=== PATIENT | male | born 1955 | race African-American/Black ===

== ENCOUNTER 2016-08-14 08:31 | Day surgery (SDC) | payer MEDICAID ==
[2016-08-13 13:42] VITALS: BMI 32.9
[2016-08-14] VITALS (8 sets, daily range): BP systolic 116–136; BP diastolic 58–74; PULSE 80–89; RESP 16–26; Ht 182.9 cm; Wt 116.6 kg
[~2016-08-14] VITALS: Ht 182.9 cm; Wt 116.6 kg
[~2016-08-14 08:31] MED LIST: CEFAZOLIN 1 GM/50 ML (PMX) 50 ML IVPB ONE; SOD CHLORIDE 0.9% 1,000 ML IV* SCH
--- NOTE | 2016-08-14 09:56 | RADRPT ---
PROCEDURE: XR Chest AP portable CLINICAL INDICATION: Scalp mass TECHNIQUE: An AP portable radiograph of the chest was submitted. COMPARISON: None. FINDINGS: Support Hardware: None Cardiovascular: The cardiovascular silhouette appears unremarkable. Lung Knutson: The lung knutson appear clear with no nodule, alveolar infiltrate, for a interstitial pr ominence evident. Pleural Spaces: No pneumothorax or pleural effusion is identified. Osseous Structures: There is a mild apparent dextroscoliotic curve to the thoracic spine. Soft Tissues: The soft tissues appear unremarkable. IMPRESSION: 1. Mild apparent dextroscoliotic curve to the thoracic spine. 2. Otherwise, unremarkable portable chest. Physician Yunier Date Time Electronically viewed and signed by Physician Yunier on 08/14/2016 09:56 /
[2016-08-14] MEDS ORDERED: CEFAZOLIN 2 GM/50 ML (PMX) 50 ML IVPB ONE (10:00)
[2016-08-14] MEDS ORDERED: SOD CHLORIDE 0.9% 1,000 ML IV SCH (10:00)
[2016-08-14 10:14] LABS: BASOPHILS % 0.4 % (0.0-2.0); EOSINOPHILS # 0.2 10^3/ul (0.0-0.5); EOSINOPHILS % 1.8 % (0.0-7.0); HEMATOCRIT 44.2 % (42.0-52.0); LYMPHOCYTES # 3.2 10^3/ul (0.8-2.9); LYMPHOCYTES % 37.2 % (15.0-51.0); MEAN CORPUSCULAR HEMOGLOBIN 28.3 pg (29.0-33.0); MEAN CORPUSCULAR HGB CONC 33.9 g/dl (32.0-37.0); MEAN CORPUSCULAR VOLUME 83.7 fl (82.0-101.0); MEAN PLATELET VOLUME 8.9 fl (7.4-10.4); MONOCYTE # 0.9 10^3/ul (0.3-0.9); NEUTROPHIL # 4.4 10^3/ul (1.6-7.5); NEUTROPHILS % 50.6 % (39.0-77.0); PLATELET COUNT 269 10^3/UL (140-440); RED BLOOD COUNT 5.28 10^6/ul (4.70-6.10); RED CELL DISTRIBUTION WIDTH 13.1 % (11.5-14.5); UNCORRECTED WBC 8.7 10^3/ul (4.8-10.8); WHITE BLOOD COUNT 8.7 10^3/ul (4.8-10.8)
[2016-08-14 10:17] LABS: CONDITION 1
[2016-08-14 10:21] LABS: INR 0.93; PROTIME 12.5 Sec (12.2-14.2)
[2016-08-14 10:22] LABS: PARTIAL THROMBOPLASTIN TIME 27.6 Sec (25.0-35.0)
[2016-08-14 10:25] LABS: POTASSIUM 4.4 mmol/L (3.5-5.1)
[2016-08-14 10:32] LABS: CALCIUM 9.4 mg/dl (8.4-10.2); CREATININE 0.94 mg/dl (0.61-1.24)
--- NOTE | 2016-08-14 12:25 | RADRPT ---
Vent Rate: 83 bpm RR Interval: 0 msec VA Interval: 160 msec QRS Duration: 86 msec QT Interval: 376 msec QTC Interval: 441 msec P-R-T [place]: 63 - 66 - 77 degrees Normal sinus rhythm Normal ECG Electronically Signed By: Sea Wilcox [id number]
[2016-08-14] MEDS ORDERED: SUCCINYLCHOLINE CHLORIDE 100 MG/5 ML SYG IV ONE (13:06)
[2016-08-14] MEDS ORDERED: PROPOFOL 20 ML ONE (13:06)
[2016-08-14] MEDS ORDERED: LIDOCAINE 2% (SDV) 5 ML INJ ONE (13:06)
[2016-08-14] MEDS ORDERED: FENTAnyl 50 MCG/ML VIAL ONE (13:07)
[2016-08-14] MEDS ORDERED: MIDAZOLAM 1 MG/ML 2 ML INJ ONE (13:07)
[2016-08-14] MEDS ORDERED: BUPIVACAINE 0.5%/EPI (SDV) 30 ML INJ ONE (13:10)
[2016-08-14] MEDS ORDERED: CEFAZOLIN 1 GM INJ ONE (13:12)
[2016-08-14] MEDS ORDERED: ONDANSETRON 4 MG INJ ONE (13:54)
[2016-08-14] MEDS ORDERED: DEXAMETHASONE 4 MG/ML 1 ML INJ ONE (13:54)
[2016-08-14] MEDS ORDERED: HYDROmorphONE 2 MG/ML SYG ONE (14:03)
[2016-08-14] MEDS ORDERED: PHENYLephrine (100 MCG/ML) 5ML SYG ONE (14:08)
[2016-08-14] MEDS ORDERED: PROCHLORPERAZINE 10 MG INJ IV PRN (14:30)
[2016-08-14] MEDS ORDERED: FENTAnyl 50 MCG/ML VIAL IV PRN (14:30)
[2016-08-14] MEDS ORDERED: ONDANSETRON 4 MG INJ IV PRN (14:30)
[2016-08-14] MEDS ORDERED: HYDROmorphONE (0.2 MG/ML) 10ML SYG IV PRN ×2 (14:30)
[2016-08-14] MEDS ORDERED: OXYCODONE/ACETAMINOPHEN (5/325) TAB PO PRN ×2 (14:30)
[2016-08-14] MEDS ORDERED: METOCLOPRAMIDE 10 MG INJ IV PRN (14:30)
[2016-08-14] MEDS ORDERED: MEPERIDINE 25 MG INJ IV PRN (14:30)
[2016-08-14] MEDS ORDERED: DIPHENHYDRAMINE 50 MG INJ IV PRN (14:30)
--- NOTE | 2016-08-14 15:34 | OPR ---
DATE OF OPERATION: 08/14/2016 PREOPERATIVE DIAGNOSIS: Right posterior auricular mass. POSTOPERATIVE DIAGNOSIS: Right posterior auricular mass. OPERATION PERFORMED: Resection of right posterior auricular mass. ANESTHESIA: General. ANESTHESIOLOGIST: Marisol Atkins MD SURGEON: Raheem Zarate MD LIFTER: Anabel Nunez MD INDICATIONS FOR PROCEDURE: The patient is a 60-year-old male who presented with a relatively large at least 3 x 3 cm mass on his right posterior auricular region that had been there for many years. He requested excision. He consented and was scheduled for surgery. DESCRIPTION OF PROCEDURE: The patient was brought to the operating theater, placed under general an esthesia. The right posterior auricular region was prepped and draped in usual sterile fashion. Ap proximately 4 cm incision was made directly over the mass. Subcutaneous tissue was dissected with c autery. In the subcutaneous space, a multilobulated mass consistent with possible lipoma, rule out liposarcoma, was identified. It was meticulously dissected from surrounding tissue using cautery, r emoved and sent for permanent pathologic analysis. The wound was irrigated. Minimal bleeding was c ontrolled with cautery. A quarter inch Cascade drain was then laid into the wound cavity and secure d in place with a 3-0 nylon suture. The skin was then reapproximated with 3-0 nylon sutures in vert ical mattress fashion. The patient tolerated procedure well. Estimated blood loss was 10 mL. Ther e were no complications and the patient was transported in stable condition to the recovery room. Dictated By: RAHEEM ZARATE MD TL/NTS Conf#: [id number] DID#: [id number] CC: ANABEL NUNEZ MD;*EndCC*
== END 2016-08-14 16:18 | disposition home or self-care (01) ==
LOC: SDS 08:31
PROVIDERS: ATTEND Surgery Surgical Oncology
DX: D17.0 Benign lipomatous neoplasm of skin and subcutaneous tissue of head, face and neck (principal)
CPT/HCPCS: 11444; 71010; 80048; 85025; 85610; 85730; 88304; 93005; J0330; J0690; J1100; J1170; J2175; J2250; J2370; J2405; J3010; Z7512; Z7610